=== PATIENT | male | born 1925 | race Caucasian/White ===

== ENCOUNTER 2016-07-13 14:56 | Emergency (ER) | payer MEDICARE ==
[2016-07-13 14:36] LABS: BASOPHILS 0.2 %; BASOPHILS ABSOLUTE 0.01 10/3/uL (0.0-0.16); EOSINOPHILS 0 %; ER CBC TAT 0 Hrs 07 Mins; HEMATOCRIT 33.6 % (40.0-51.0); HEMOGLOBIN 10.9 g/dL (13.6-17.8); IMMATURE GRANULOCYTES 0.2 %; IMMATURE GRANULOCYTES ABSOLUTE 0.01 10/3/uL (0.0-0.11); LYMPHOCYTES 15.3 %; LYMPHOCYTES ABSOLUTE 0.79 10/3/uL (0.67-4.30); MEAN CORPUS HGB CONC 32.4 g/dL (32.0-36.0); MEAN CORPUSCULAR VOLUME 92.6 fL (80-100); MONOCYTES 18.4 %; MONOCYTES ABSOLUTE 0.95 10/3/uL (0.21-1.20); NEUTROPHILS 65.9 %; NEUTROPHILS ABSOLUTE 3.41 10/3/uL (2.02-8.40); PLATELET COUNT 209 10/3/uL (150-400); RBC DISTRIBUTION WIDTH 17.1 % (12.0-16.0); RED CELL COUNT 3.63 10/6/uL (4.7-6.1); WHITE BLOOD CELLS 5.2 10/3/uL (4.5-10.5)
[2016-07-13 14:37] LABS: MANUAL DIFF NO %
[2016-07-13 14:43] LABS: INTERNATIONAL NORMAL RATI 1.4 UNITS (-); PARTIAL THROMBO TIME 35.4 SEC (22.5-37.2)
[2016-07-13 14:53] LABS: A/G RATIO 0.5 (0.7-1.9); ALBUMIN 2.8 G/DL (3.5-5.0); ALKALINE PHOSPHATASE 94 U/L (45-117); CHLORIDE, SERUM 95 MMOL/L (96-112); CO2 (CARBON DIOXIDE) 28 MMOL/L (24-34); CREATININE 2.17 MG/DL (0.70-1.30); GFR AFRICAN AMERICAN 30 ML/MIN (>=60); GFR NON AFRICAN AMERICAN 26 ML/MIN (>=60); GLOBULIN 5.5 G/DL (2.5-4.1); GLUCOSE, SERUM 92 MG/DL (60-99); LACTATE 2.3 MMOL/L (0.3-2.4); POTASSIUM, SERUM 4.2 MMOL/L (3.5-5.3); SGOT(AST) 20 U/L (5-40); SGPT(ALT) 12 U/L (5-65); SODIUM, SERUM 135 MMOL/L (135-148); TOTAL PROTEIN 8.3 G/DL (6.0-8.5); TROPONIN I <0.02 NG/ML (<0.05)
[2016-07-13 14:55] LABS: BUN (BLOOD UREA NITROGEN) 27 MG/DL (6-23); CALCIUM, SERUM 7.9 MG/DL (8.5-10.4)
[~2016-07-13 14:56] MED LIST: ASAB PO; BACDS PO; CENTRUM PO; COREG6 PO; DEMA20 PO; FERROUS SULF325 M1 PO; GENERLAC PO; HALF81 PO; JANTOVEN4 MG PO; KLOR-CON M2020 MEQ PO; L40 PO; LAN125 PO; LOP25 PO; MOMUD PO; NEUR100 PO; OS500+D PO; PROAMAT5 PO; REFRESH OPH; SPIR100 PO; [UNRECOGNIZED DRUG - OTHER]
[2016-07-13 15:03] LABS: B NATRIURETIC PEPTIDE (BNP) 674.8 PG/ML (< 100.0)
[2016-07-13 15:17] LABS: WBC (NOT ORDERED) (RFLEX) 0 (0-5)
[2016-07-13 15:24] LABS: ASCORBIC ACID (UR NOT ORDER) NEG (NEG); BILIRUBIN, URINE NEGATIVE (NEG); ER URINALYSIS TAT 0 Hrs 08 Mins; KETONE, URINE NEGATIVE (NEG); LEUKOCYTE ESTERASE(NOT OR NEG (NEG); NITRITE (URINE) NEG (NEG)
== END 2016-07-13 17:13 | disposition home or self-care (01) ==
LOC: ER 14:56
PROVIDERS: Emergency Medicine
DX: K74.60 Unspecified cirrhosis of liver (principal); R18.8 Other ascites; I25.2 Old myocardial infarction; I48.91 Unspecified atrial fibrillation; I50.9 Heart failure, unspecified; N18.9 Chronic kidney disease, unspecified; Z95.5 Presence of coronary angioplasty implant and graft; Z88.7 Allergy status to serum and vaccine; Z79.82 Long term (current) use of aspirin; Z79.899 Other long term (current) drug therapy
CPT/HCPCS: 71010; 74176; 80053; 81001; 82140; 83605; 83690; 83880; 84484; 85025; 85610; 85730; 87040; 93005; 99285

== ENCOUNTER 2016-07-15 08:25 | Observation (INO) | payer MEDICARE ==
--- NOTE | ~2016-07-15 | DS ---
Discharge Summary [place] [id number] [place]. [address] NAME: JAGDEEP PINEDA : [birth year] STATUS : DIS Sarahy PAT#: [id number] AGE: 89 ADM/REG DATE : 07/15/16 MR#: [id number] REPORT SERV DATE: 07/23/16 DICTATED BY: JR. FERREIRA WILLIAM JOHN DATE: 07/22/16 REPORT STATUS : Draft TRANSCRIBED BY: MODL DATE: 07/22/16 ADMISSION DATE: 07/15/2016 DISCHARGE DATE: 07/16/2016 ADDENDUM: UPDATED MEDICATION LIST: 1. Aspirin 81 mg orally with supper holding for four days. 2. Neurontin 100 mg orally twice a day. 3. Lactulose 15 mL orally twice a day. 4. Potassium chloride 20 mEq twice a day. 5. Aldactone 100 mg orally twice a day. 6. Demadex 20 mg orally twice a day. 7. Midodrine 5 mg orally twice a day. 8. Valium 2.5-5 mg daily as needed. 9. Multivitamin one tablet orally daily. 10.Oxycodone 5 mg every six hours p.r.n. WLeonidasF/AYUSH Thomas Ferreira Jr, MD / [id number]
--- NOTE | ~2016-07-15 | DS ---
Discharge Summary [facility] [address] [place]. [address] NAME: JAGDEEP PINEDA : [birth year] STATUS : DIS Sarahy PAT#: [id number] AGE: 89 ADM/REG DATE : 07/15/16 MR#: [id number] REPORT SERV DATE: 07/17/16 DICTATED BY: JR. FERREIRA WILLIAM JOHN DATE: 07/16/16 REPORT STATUS : Draft TRANSCRIBED BY: MODL DATE: 07/16/16 ADMISSION DATE: 07/15/2016 DISCHARGE DATE: 07/16/2016 DISCHARGE DIAGNOSES: 1. Ischemic cardiomyopathy with ejection fraction 35% with recurrent ascites. 2. 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 3. History of valvular heart disease with a history of mitral valve repair and aortic valve repair. 4. History of atrial fibrillation, on chronic anticoagulation in the past. 5. History of permanent pacemaker. 6. History of coronary artery disease. 7. Chronic kidney disease. OPERATIONS, PROCEDURES, AND TREATMENTS: 1. Placement of a PleurX peritoneal catheter/drain by Interventional Radiology. 2. Consulting Physician: Dr. Smyth of Palliative Care. 3. PA and lateral chest x-ray done 07/15/2016, which showed lungs demonstrating a marked improvement in congestive failure compared to 07/13/2016 with persistent pleural effusion. Pacemaker, valve surgery, bypass procedure all noted. DISCHARGE MEDICATIONS: 1. Plavix 75 daily, holding for the next 4 days. 2. Lantus insulin 20 units at the hour of sleep. 3. Neurontin 400 mg four times a day. 4. Oxycodone 5 mg every six hours as needed. HOSPITAL COURSE: Briefly, the patient is an 89-year-old white male with a history of systolic heart failure with recurrent ascites and pleural effusions, requiring very frequent paracenteses. He presented to [facility] on 07/15/2016 with rapidly reaccumulating ascites. They had actually seen Dr. Diaz, who felt this was not intrinsic liver disease, but rather cardiac liver dysfunction. The request was for a PleurX drain. For complete details, please see Dr. Chapa's dictated history and physical. The patient was admitted to the Clinical Decision Unit. He was seen by Palliative Care on 07/15/2016 with recommendation for PleurX drain and hospice. The patient accepted this. Apparently, the arrangements for the PleurX drain had not been done. I was contacted by the family early the morning of 07/16, and arranged for the PleurX drain procedure to be done. The patient had received a single dose of aspirin 81 mg on the evening prior to the procedure. The family was aware, and the patient was aware that there was an increased risk of bleeding; however, they chose to proceed. The patient proceeded to get a PleurX drain in place with no evidence of bleeding at that time. Hospice arrangements had already been made, and the patient will be discharged home today, 07/16/2016, with hospice. For discharge exam and laboratory, please see daily progress note. DISCHARGE DIET: As tolerated. Discharge Summary [place] [address] [facility] [place]. [address] NAME: JAGDEEP PINEDA : [birth year] STATUS : DIS Sarahy PAT#: [id number] AGE: 89 ADM/REG DATE : 07/15/16 MR#: [id number] REPORT SERV DATE: 07/17/16 DICTATED BY: JR. FERREIRA WILLIAM JOHN DATE: 07/16/16 REPORT STATUS : Draft TRANSCRIBED BY: AYUSH DATE: 07/16/16 ACTIVITY: As tolerated. This discharge took approximately 80 minutes for patient encounter, coordination of care, and documentation. WLeonidasF/AYUSH Thomas Ferreira Jr, MD / [id number]
--- NOTE | ~2016-07-15 | HP ---
History And Physical [place] [id number] [facility] [place]. [address] NAME: JAGDEEP PINEDA : [birth year] STATUS : ADM Sarahy PAT#: [id number] AGE: 89 ADM/REG DATE : 07/15/16 MR#: [id number] REPORT SERV DATE: 07/15/16 DICTATED BY: SPENCER JAIN DATE: 07/15/16 REPORT STATUS : Draft TRANSCRIBED BY: MODL DATE: 07/15/16 DATE OF ADMISSION: 07/15/2016 CHIEF COMPLAINT: Refractory ascites. HISTORY OF PRESENT ILLNESS: The patient is a very pleasant 89-year-old white male. He is very sleepy today, but his son reports he was up all night as he is uncomfortable. He has had a fairly jacklyn course over the last year. He has actually been admitted six times in the last year, and he has also been at [facility] admitted. He has a history of end-stage cardiomyopathy, ischemic in nature with last EF measured around 30% to 35%. He has had multiple admissions for both diuresis as well as tapping various pleural effusions. He has refractory pleural effusions at this point. Apparently, he developed ascites, which was quite dramatic while at [facility] in the last month or two. He underwent paracentesis. He has now had multiple paracenteses. He had one on 07/12 and again, he returned the following day to require more fluid to be drained. His ascites tends to reaccumulate quite aggressively. He actually saw Dr. Myke Diaz, who I spoke with today, and he reports that he did not find any really intrinsic liver disease to explain his ascites or liver symptoms that he likely had developed cardiac cirrhosis. He denies chest pain. He states he has some mild abdominal pain and that his abdomen feels distended. He has not had any documented fevers. He looks fairly cachectic as if he has lost weight. He does have some good days. According to the son, his last good day was last Friday, but most of his days, he does not feel well. He has chronic now lower extremity edema, which he has difficulty controlling, and his blood pressure is low normal on a good day. PAST MEDICAL HISTORY: 1. Ischemic cardiomyopathy with EF around 30%. 2. 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 3. with a history of AVR. 4. Mitral valve replacement. 5. Atrial fibrillation. 6. CAD with history of CABG. 7. Third-degree heart block, status post pacer. 8. Relative hypotension. 9. CKD with baseline creatinine of 1.6 to 2.2. 10.Hyperlipidemia. 11.PAD. 12.Nephrolithiasis. 13.Cholelithiasis. ALLERGIES: NO KNOWN DRUG ALLERGIES. SOCIAL HISTORY: He dips snuff. He quit smoking at the age of 41. He is . He lives with his . He still drives on occasion. PAST SURGICAL HISTORY: He has had: 1. CABG. History And Physical [address] [address] NAME: JAGDEEP PINEDA : [birth year] STATUS : ADM Sarahy PAT#: [id number] AGE: 89 ADM/REG DATE : 07/15/16 MR#: [id number] REPORT SERV DATE: 07/15/16 DICTATED BY: SPENCER JAIN DATE: 07/15/16 REPORT STATUS : Draft TRANSCRIBED BY: AYUSH DATE: 07/15/16 2. AVR. 3. MVR. 4. Pacemaker. 5. Back surgery x2. 6. Kidney stone surgery. 7. Cholecystectomy. FAMILY HISTORY: Positive for CAD. HOME MEDICATIONS: Reviewed and attached. REVIEW OF SYSTEMS: Full 10-point review of systems obtained. Pertinent positives already mentioned in the HPI. PHYSICAL EXAMINATION: VITAL SIGNS: BP 91/60, temperature 97.9, pulse 94, respirations 15, sats are 100%. GENERAL: Cachectic-appearing, frail, ill-appearing white male. HEENT: Normocephalic and atraumatic. Throat is clear. NECK: Supple. HEART: Regular rate and rhythm. LUNGS: He has crackles about detention up his lung dunham. ABDOMEN: Soft, but distended and looks like he has ascites present. EXTREMITIES: He has tense edema. He has some erythema over bilateral anterior tibia that is consistent with some venous stasis changes. He has diminished pulses at the feet. NEURO: He arouses and follows commands and can talk, but he is sleepy. He moves all four extremities symmetrically. LABORATORY AND X-RAY STUDIES: BNP was 575. Lactate 1.4. Chest x-ray shows congestive failure changes, which are a little bit improved and persistent with pleural effusions, left greater than right. Sodium is 134, potassium 4, chloride 94, CO2 of 31, BUN and creatinine 23 and 2.12, glucose is 81. LFTs are as follows, albumin 2.8, total bilirubin is 1.6, alkaline phosphatase 107, ALT is 13, lipase is 194. Blood culture from yesterday is negative. ASSESSMENT/PLAN: 1. Ischemic cardiomyopathy with EF 35%, now with refractory ascites and pleural effusions requiring multiple paracenteses and probable development of cardiac cirrhosis. The patient's family desires a PleurX catheter to be placed in his abdomen for drainage of his ascites so that he cannot return to the hospital so frequently. I think that, that is a reasonable option should he decide that he is more in a palliative treatment mode, I think they are leaning towards that direction. I think if we do place a tube, it is going to increase his risk of infection, it is probably going to have a detrimental effect on his kidneys and he may develop series of electrolyte abnormalities. I think if this is more of a palliative step and he is interested in hospice care, then this could certainly be done and he could go home with home hospice. I am going to have the Palliative Care team see him here. After their discussions, we will decide whether or not we are going to place the catheter. Also, the son needs to talk with additional History And Physical [address] [place]. [address] NAME: JAGDEEP PINEDA : [birth year] STATUS : ADM Sarahy PAT#: [id number] AGE: 89 ADM/REG DATE : 07/15/16 MR#: [id number] REPORT SERV DATE: 07/15/16 DICTATED BY: SPENCER JAIN DATE: 07/15/16 REPORT STATUS : Draft TRANSCRIBED BY: MODL DATE: 07/15/16 family members. In the meantime, I am not going to diurese him additionally, I do not think he will tolerate, his blood pressure is only 91/40. I am going to make him a DNR, which he is agreeable to. We will continue his home medications for now and go from there. 2. 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 3. History of valvular heart disease with mitral and aortic valve replacement. 4. History of atrial fibrillation, off chronic anticoagulation. 5. History of coronary artery disease. 6. History of pacemaker. 7. Chronic kidney disease. Currently, creatinine is 2.2. I suspect that if we place a catheter in his abdomen to drain the ascites on a regular basis, his creatinine will worsen. 8. Code status. The patient is DNR. 9. Disposition. At this point, given the patient's multitude of medical problems and the low likelihood that he will really have any meaningful recovery, I think that we should likely pursue a course that is more palliative in nature and perhaps sending home with hospice. Dr. Smyth is going to see the patient today for further discussions and he will make further decisions. LUCIE/AYUSH Spencer Jain M.D. / [id number] CC: Thomas Ferreira Jr, MD
[2016-07-15 09:19] LABS: BASOPHILS 0 %; EOSINOPHILS 0 %; ER CBC TAT 0 Hrs 08 Mins; HEMATOCRIT 32.8 % (40.0-51.0); HEMOGLOBIN 10.7 g/dL (13.6-17.8); IMMATURE GRANULOCYTES 0.2 %; IMMATURE GRANULOCYTES ABSOLUTE 0.01 10/3/uL (0.0-0.11); LYMPHOCYTES 17.7 %; LYMPHOCYTES ABSOLUTE 0.88 10/3/uL (0.67-4.30); MANUAL DIFF NO %; MEAN CORPUS HGB CONC 32.6 g/dL (32.0-36.0); MEAN CORPUSCULAR HEMOGLOB 30.1 pg (26.0-34.0); MEAN CORPUSCULAR VOLUME 92.1 fL (80-100); MONOCYTES 19.1 %; MONOCYTES ABSOLUTE 0.95 10/3/uL (0.21-1.20); NEUTROPHILS ABSOLUTE 3.13 10/3/uL (2.02-8.40); PLATELET COUNT 217 10/3/uL (150-400); RBC DISTRIBUTION WIDTH 17.2 % (12.0-16.0); RED CELL COUNT 3.56 10/6/uL (4.7-6.1)
[2016-07-15 09:26] LABS: INTERNATIONAL NORMAL RATI 1.4 UNITS (-); PROTIME (NOT ORD) 16.7 SEC (12.0-14.5)
[2016-07-15 09:35] LABS: A/G RATIO 0.5 (0.7-1.9); ALBUMIN 2.8 G/DL (3.5-5.0); CALCIUM, SERUM 8.2 MG/DL (8.5-10.4); CHLORIDE, SERUM 94 MMOL/L (96-112); CO2 (CARBON DIOXIDE) 31 MMOL/L (24-34); CREATININE 2.12 MG/DL (0.70-1.30); GFR AFRICAN AMERICAN 31 ML/MIN (>=60); GFR NON AFRICAN AMERICAN 27 ML/MIN (>=60); GLUCOSE, SERUM 81 MG/DL (60-99); POTASSIUM, SERUM 4.1 MMOL/L (3.5-5.3); SGOT(AST) 23 U/L (5-40); SGPT(ALT) 13 U/L (5-65); SODIUM, SERUM 134 MMOL/L (135-148); TOTAL PROTEIN 8.8 G/DL (6.0-8.5)
[2016-07-15 09:36] LABS: ALKALINE PHOSPHATASE 107 U/L (45-117); BUN (BLOOD UREA NITROGEN) 23 MG/DL (6-23); TOTAL BILIRUBIN 1.6 MG/DL (0-1.2)
[2016-07-15] MEDS ORDERED: DEMA20 PO (11:15)
[2016-07-15] MEDS ORDERED: FERROUS SULF325 M1 PO (11:17)
[2016-07-15] MEDS ORDERED: KLOR-CON M2020 MEQ PO (11:17)
[2016-07-15] MEDS ORDERED: GENERLAC PO (11:17)
[2016-07-15] MEDS ORDERED: PROAMAT5 PO (11:18)
[2016-07-15] MEDS ORDERED: NEUR100 PO (11:19)
[2016-07-15] MEDS ORDERED: SPIR100 PO (11:19)
[2016-07-15] MEDS ORDERED: V5 PO (11:20)
[2016-07-15] MEDS ORDERED: ASAB PO (11:20)
[2016-07-15] MEDS ORDERED: CENTRUM PO (11:21)
[2016-07-15 15:23] LABS: PHOSPHORUS, SERUM 3.9 MG/DL (2.5-4.5)
[2016-07-15 20:08] LABS: PROCALCITONIN 0.07 ng/mL (<0.5)
[2016-07-16 05:14] LABS: BASOPHILS 0.2 %; BASOPHILS ABSOLUTE 0.01 10/3/uL (0.0-0.16); EOSINOPHILS 0 %; HEMATOCRIT 34.6 % (40.0-51.0); HEMOGLOBIN 11.3 g/dL (13.6-17.8); LYMPHOCYTES 19.3 %; LYMPHOCYTES ABSOLUTE 0.85 10/3/uL (0.67-4.30); MEAN CORPUS HGB CONC 32.7 g/dL (32.0-36.0); MEAN CORPUSCULAR HEMOGLOB 30.1 pg (26.0-34.0); MONOCYTES 12.9 %; MONOCYTES ABSOLUTE 0.57 10/3/uL (0.21-1.20); NEUTROPHILS 67.6 %; NEUTROPHILS ABSOLUTE 2.98 10/3/uL (2.02-8.40); PLATELET COUNT 246 10/3/uL (150-400); RBC DISTRIBUTION WIDTH 17.2 % (12.0-16.0); RED CELL COUNT 3.76 10/6/uL (4.7-6.1); WHITE BLOOD CELLS 4.4 10/3/uL (4.5-10.5)
[2016-07-16 05:15] LABS: MANUAL DIFF NO %
[2016-07-16 05:28] LABS: A/G RATIO 0.5 (0.7-1.9); ALBUMIN 2.9 G/DL (3.5-5.0); ALKALINE PHOSPHATASE 103 U/L (45-117); BUN (BLOOD UREA NITROGEN) 26 MG/DL (6-23); CALCIUM, SERUM 8.2 MG/DL (8.5-10.4); CHLORIDE, SERUM 97 MMOL/L (96-112); CO2 (CARBON DIOXIDE) 27 MMOL/L (24-34); CREATININE 2.13 MG/DL (0.70-1.30); GFR AFRICAN AMERICAN 31 ML/MIN (>=60); GFR NON AFRICAN AMERICAN 27 ML/MIN (>=60); GLOBULIN 5.8 G/DL (2.5-4.1); GLUCOSE, SERUM 75 MG/DL (60-99); POTASSIUM, SERUM 4.6 MMOL/L (3.5-5.3); SGOT(AST) 25 U/L (5-40); SGPT(ALT) 11 U/L (5-65); SODIUM, SERUM 134 MMOL/L (135-148); TOTAL BILIRUBIN 1.6 MG/DL (0-1.2); TOTAL PROTEIN 8.7 G/DL (6.0-8.5)
[2016-07-16] MEDS ORDERED: OXYCOD PO (18:24)
== END 2016-07-16 18:37 | disposition home or self-care (01) ==
LOC: ER 08:25 → CDU1 11:17 → CDU2 11:29
PROVIDERS: Emergency Medicine; Internal Medicine
DX: R18.8 Other ascites (principal); I25.5 Ischemic cardiomyopathy; I35.0 Nonrheumatic aortic (valve) stenosis; I48.91 Unspecified atrial fibrillation; I25.10 Atherosclerotic heart disease of native coronary artery without angina pectoris; K76.1 Chronic passive congestion of liver; I44.2 Atrioventricular block, complete; N18.9 Chronic kidney disease, unspecified; E78.5 Hyperlipidemia, unspecified; I73.9 Peripheral vascular disease, unspecified; Z87.442 Personal history of urinary calculi; Z87.891 Personal history of nicotine dependence; Z95.1 Presence of aortocoronary bypass graft; Z90.49 Acquired absence of other specified parts of digestive tract; Z98.890 Other specified postprocedural states; Z79.02 Long term (current) use of antithrombotics/antiplatelets; Z79.4 Long term (current) use of insulin; Z79.899 Other long term (current) drug therapy
CPT/HCPCS: 49418; 71020; 80053; 82140; 83605; 83690; 83735; 83880; 84100; 84145; 85025; 85610; 96372; 99152; 99153; 99285; A9270-GY; C1729; C1769; G0378; J2250; J3010; Q9967